=== PATIENT | male | born 1995 | race Caucasian/White ===

== ENCOUNTER 2019-12-01 03:11 | Emergency (ER) | payer SELFPAY ==
[~2019-12-01] VITALS: Ht 175.3 cm; Wt 68.0 kg
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
--- NOTE | 2019-12-01 04:11 | NUR ---
Patient discharged to home in stable condition. Written and verbal after care instructions given. Patient verbalizes understanding of instruction.
[2019-12-01 04:12] VITALS: BP 135/78
== END 2019-12-01 04:12 | disposition home or self-care (01) ==
LOC: ER 03:11
DX: S63.8X1A Sprain of other part of right wrist and hand, initial encounter (principal); Y04.0XXA Assault by unarmed brawl or fight, initial encounter; Y93.89 Activity, other specified; Y92.89 Other specified places as the place of occurrence of the external cause; Y99.8 Other external cause status
CPT/HCPCS: 73130-TC